=== PATIENT | female | born 1985 | race African-American/Black ===

== ENCOUNTER 2016-10-09 23:29 | Emergency (ER) | payer OTHER ==
[~2016-10-09] VITALS: Ht 162.6 cm; Wt 78.0 kg
[~2016-10-09 23:29] MED LIST: FERROUS SULFATE; PRENATAL VIT
[2016-10-10 00:52] VITALS: BP 132/81
[2016-10-10 01:51] LABS: *BARBITURATES SCREEN URINE NEGATIVE (NEGATIVE); *BENZODIAZEPINES SCREEN URINE NEGATIVE (NEGATIVE); ECSTASY MDMA SCREEN URINE NEGATIVE (NEGATIVE); METHADONE URINE SCREEN NEGATIVE (NEGATIVE); OPIATES URINE SCREEN NEGATIVE (NEGATIVE); PHENCYCLIDINE URINE SCREEN NEGATIVE (NEGATIVE)
[2016-10-10 01:54] LABS: BASOPHILS % 0.7 % (0.0-2.0); EOSINOPHILS % 0.7 % (0.0-5.0); HEMATOCRIT. 38.1 % (36.0-48.0); HEMOGLOBIN. 12.7 g/dL (12.0-16.0); MEAN CORPUSCULAR HEMOGLOBIN 30.9 pg (28.0-32.0); MEAN CORPUSCULAR HGB CONC 33.5 g/dL (31.0-37.0); MEAN CORPUSCULAR VOLUME 92.4 fL (81.0-99.0); MEAN PLATELET VOLUME 8.3 fl (7.4-10.4); MONOCYTES % 7.4 % (2.0-8.0); NEUTROPHILS % 58.2 % (40.0-76.0); PLATELET 271 x1000/uL (130-400); RED BLOOD CELL COUNT 4.12 mill/uL (4.2-5.4); RED CELL DISTRIBUTION WIDTH 13.5 % (11.6-14.6); WHITE BLOOD COUNT 6.7 x1000/uL (4.5-11.0)
[2016-10-10 02:04] LABS: *AMPHETAMINES SCREEN URINE NEGATIVE (NEGATIVE)
[2016-10-10 02:15] LABS: ANION GAP 12; CALCIUM 9.1 mg/dL (8.5-10.1); CARBON DIOXIDE 25 mEq/L (21-32); CHLORIDE 104 mEq/L (98-107); INDEX HEMOLYSI 1 (1-3); INDEX ICTERIC 1 (1-4); INDEX LIPEMIC 1 (1-3); UREA NITROGEN BLOOD 8 mg/dL (7-21); eGFR > 60 mL/min (>60)
[2016-10-10 02:16] LABS: *COCAINE SCREEN URINE PRESUMTIVE POSITIVE (NEGATIVE); CANNABINOID URINE SCREEN PRESUMTIVE POSITIVE (NEGATIVE)
[2016-10-10 02:27] LABS: B-HCG QUANTITATIVE 6024 mIU/mL (<3)
== END 2016-10-10 04:36 | disposition left against medical advice (07) ==
LOC: ER 23:30
DX: O03.9 Complete or unspecified spontaneous abortion without complication (principal); F14.129 Cocaine abuse with intoxication, unspecified; F12.929 Cannabis use, unspecified with intoxication, unspecified; Z3A.01 Less than 8 weeks gestation of pregnancy
CPT/HCPCS: 36415; 76830; 76856; 80048; 80305; 81025; 84702; 85025; 86850; 86900; 99285

== ENCOUNTER 2017-03-12 09:20 | Emergency (ER) | payer SELFPAY ==
[~2017-03-12] VITALS: Ht 162.6 cm; Wt 84.0 kg
[2017-03-12] MEDS ORDERED: SODIUM CHLORIDE 0.9% 1,000 ML IV ONE (10:59)
[2017-03-12 11:22] LABS: BASOPHILS % 0.6 % (0.0-2.0); EOSINOPHILS % 0.1 % (0.0-5.0); HEMATOCRIT. 38.2 % (36.0-48.0); LYMPHOCYTES % 22.9 % (20.0-50.0); MEAN CORPUSCULAR HEMOGLOBIN 31.2 pg (28.0-32.0); MEAN CORPUSCULAR VOLUME 91.4 fL (81.0-99.0); MEAN PLATELET VOLUME 8.6 fl (7.4-10.4); MONOCYTES % 6.7 % (2.0-8.0); NEUTROPHILS % 69.7 % (40.0-76.0); PLATELET 244 x1000/uL (130-400); RED BLOOD CELL COUNT 4.18 mill/uL (4.2-5.4); RED CELL DISTRIBUTION WIDTH 13.3 % (11.6-14.6)
[2017-03-12 11:30] LABS: CHLORIDE 101 mEq/L (98-107)
[2017-03-12 11:38] LABS: CARBON DIOXIDE 26 mEq/L (21-32)
[2017-03-12 11:44] LABS: HCG SCREEN POSITIVE
[2017-03-12] MEDS ORDERED: ONDANSETRON HCL 4MG/2ML VIAL IV ONE (11:45)
[2017-03-12 11:58] LABS: CLARITY URINE CLEAR (CLEAR); COLOR URINE DARK YELLOW (YELLOW); GLUCOSE URINE NEGATIVE (NEGATIVE); KETONES URINE 2+ (NEGATIVE); LEUKOCYTE ESTERASE URINE NEGATIVE (NEGATIVE); NITRITE URINE NEGATIVE (NEGATIVE); OCCULT BLOOD URINE NEGATIVE (NEGATIVE); PROTEIN URINE TRACE (NEGATIVE); SPECIFIC GRAVITY URINE 1.022 (1.005-1.030)
[2017-03-12 14:40] VITALS: BP 120/82
[2017-03-14 04:18] LABS: CHLAMYDIA TRACHOMATIS NAA Negative (Negative); NEISSERIA GONORRHOEAE NAA Negative (Negative)
== END 2017-03-12 14:53 | disposition home or self-care (01) ==
LOC: ER 09:35
DX: O26.891 Other specified pregnancy related conditions, first trimester (principal); R11.0 Nausea; Z3A.01 Less than 8 weeks gestation of pregnancy
CPT/HCPCS: 36415; 71010; 76801; 76817; 80053; 81001; 84702; 84703; 85025; 87491; 87591; 93005; 96361; 96374; 99285; J2405; J7030; Z7610

== ENCOUNTER 2017-10-25 00:30 | Observation (INO) | payer MEDICAID ==
[~2017-10-25] VITALS: Ht 162.6 cm; Wt 113.4 kg
== END 2017-10-25 02:00 | disposition home or self-care (01) ==
LOC: L&D 00:30
PROVIDERS: ADMIT Specialist; ATTEND Specialist
DX: O42.92 Full-term premature rupture of membranes, unspecified as to length of time between rupture and onset of labor (principal); Z3A.39 39 weeks gestation of pregnancy
CPT/HCPCS: 99281; G0378

== ENCOUNTER 2017-11-06 23:02 | Observation (INO) | payer MEDICAID ==
[~2017-11-06] VITALS: Ht 162.6 cm; Wt 113.4 kg
[~2017-11-06 23:02] MED LIST changes: -FERROUS SULFATE
== END 2017-11-07 00:35 | disposition home or self-care (01) ==
LOC: L&D 23:02
PROVIDERS: ADMIT Specialist; ATTEND Specialist
DX: O62.9 Abnormality of forces of labor, unspecified (principal); Z3A.40 40 weeks gestation of pregnancy; O48.1 Prolonged pregnancy
CPT/HCPCS: 99281; G0378

== ENCOUNTER 2018-04-23 11:22 | Emergency (ER) | payer MEDICAID ==
[~2018-04-23] VITALS: Ht 162.6 cm; Wt 111.0 kg
[2018-04-23 11:56] VITALS: BP 142/87
[2018-04-23] MEDS ORDERED: IBUPROFEN 800MG TABLET PO ONE (12:30)
== END 2018-04-23 12:34 | disposition home or self-care (01) ==
LOC: ER 11:30
DX: S13.4XXA Sprain of ligaments of cervical spine, initial encounter (principal); V89.2XXA Person injured in unspecified motor-vehicle accident, traffic, initial encounter; Y93.89 Activity, other specified; Y92.89 Other specified places as the place of occurrence of the external cause; Y99.8 Other external cause status
CPT/HCPCS: 99283

== ENCOUNTER 2019-01-30 00:11 | Observation (INO) | payer MEDICAID ==
[~2019-01-30] VITALS: Ht 162.6 cm; Wt 99.8 kg
[2019-01-30] MEDS ORDERED: prenatal vitamin (00:46)
[2019-01-30] MEDS ORDERED: LACTATED RINGERS 1,000 ML IV SCH (02:45)
== END 2019-01-30 04:30 | disposition home or self-care (01) ==
LOC: 8 EST LDRP 00:11
PROVIDERS: ADMIT Specialist; ATTEND Specialist
DX: O36.8130 Decreased fetal movements, third trimester, not applicable or unspecified (principal); O62.9 Abnormality of forces of labor, unspecified; O48.0 Post-term pregnancy; Z3A.42 42 weeks gestation of pregnancy
CPT/HCPCS: 76815; 76818; 99281; G0378; 96360; 96361

== ENCOUNTER 2019-02-01 04:17 | Observation (INO) | payer MEDICAID ==
[~2019-02-01] VITALS: Ht 162.6 cm; Wt 99.8 kg
[~2019-02-01 04:17] MED LIST changes: -PRENATAL VIT; +prenatal vitamin
== END 2019-02-01 10:00 | disposition home or self-care (01) ==
LOC: 8 EST LDRP 04:17
PROVIDERS: ADMIT Obstetrics & Gynecology; ATTEND Obstetrics & Gynecology
DX: O48.1 Prolonged pregnancy (principal); Z3A.42 42 weeks gestation of pregnancy
CPT/HCPCS: 76805; 76815; 76818; 99281; G0378

== ENCOUNTER 2019-02-02 00:12 | Inpatient (IN) | payer MEDICAID ==
[~2019-02-02] VITALS: Ht 162.6 cm; Wt 99.8 kg
[2019-02-02] MEDS ORDERED: DEXT 5%/LR + PITOCIN 20UNITS/L 1,000 ML IV SCH (01:39)
[2019-02-02] MEDS ORDERED: LIDOCAINE HCL 1% 20ML VIAL (Pyxis) INJ INFIL SCH (01:45)
[2019-02-02] MEDS ORDERED: METHYLERGONOVINE MALEATE 0.2 MG/ML IM PRN (01:45)
[2019-02-02] MEDS ORDERED: MISOPROSTOL 100MCG TABLET VG PRN (01:45)
[2019-02-02] MEDS ORDERED: NALOXONE HCL 0.4 MG/ML 1ML VIAL IM PRN (01:45)
[2019-02-02] MEDS ORDERED: BUTORPHANOL TARTRATE 2 MG/ML VIAL IV PRN (01:45)
[2019-02-02] MEDS ORDERED: AMPICILLIN 2,000 MG in SODIUM CHLORIDE 0.9% 100 ML IV SCH (02:00)
[2019-02-02] MEDS ORDERED: MISOPROSTOL 25 MCG TABLET VG PRN (02:30)
[2019-02-02] MEDS: LACTATED RINGERS 1,000 ML IV SCH ×5 (03:21→23:49)
[2019-02-02] MEDS: MISOPROSTOL 100MCG TABLET VG PRN ×2 (03:55→08:32)
[2019-02-02 04:54] LABS: BASOPHILS % 0.4 % (0.0-2.0); EOSINOPHILS % 0.3 % (0.0-5.0); HEMATOCRIT. 33.2 % (36.0-48.0); HEMOGLOBIN. 11.2 g/dL (12.0-16.0); MEAN CORPUSCULAR VOLUME 91.8 fL (81.0-99.0); MEAN PLATELET VOLUME 9.6 fl (7.4-10.4); MONOCYTES % 9.1 % (2.0-8.0); NEUTROPHILS % 69.2 % (40.0-76.0); PLATELET 236 x1000/uL (130-400); RED BLOOD CELL COUNT 3.61 mill/uL (4.2-5.4); RED CELL DISTRIBUTION WIDTH 13.9 % (11.6-14.6)
[2019-02-02 05:00] LABS: CLARITY URINE CLOUDY (CLEAR); COLOR URINE YELLOW (YELLOW); KETONES URINE NEGATIVE (NEGATIVE); LEUKOCYTE ESTERASE URINE NEGATIVE (NEGATIVE); NITRITE URINE NEGATIVE (NEGATIVE); OCCULT BLOOD URINE NEGATIVE (NEGATIVE); PH URINE 6.5 (4.5-8.0); PROTEIN URINE NEGATIVE (NEGATIVE); SPECIFIC GRAVITY URINE 1.013 (1.005-1.030)
[2019-02-02 05:02] LABS: INR 0.9; PROTHROMBIN TIME 9.6 sec (9.6-11.0)
[2019-02-02 05:19] LABS: *AMPHETAMINES SCREEN URINE NEGATIVE (NEGATIVE); *BARBITURATES SCREEN URINE NEGATIVE (NEGATIVE); *BENZODIAZEPINES SCREEN URINE NEGATIVE (NEGATIVE); *COCAINE SCREEN URINE NEGATIVE (NEGATIVE); METHADONE URINE SCREEN NEGATIVE (NEGATIVE)
[2019-02-02 05:20] LABS: CANNABINOID URINE SCREEN NEGATIVE (NEGATIVE); OPIATES URINE SCREEN NEGATIVE (NEGATIVE); PHENCYCLIDINE URINE SCREEN NEGATIVE (NEGATIVE)
[2019-02-02 05:33] LABS: HEPATITIS B SURFACE ANTIGEN NEGATIVE
[2019-02-02] MEDS ORDERED: ROPIVACAINE HCL/PF EPIDURAL 200 ML EP SCH (06:15)
[2019-02-02] MEDS ORDERED: CITRIC ACID/SODIUM CITRATE SOLN 30ML UDC PO NR (07:15)
[2019-02-02] MEDS: AMPICILLIN 1,000 MG in SODIUM CHLORIDE 0.9% 50 ML IV SCH ×3 (10:08→22:39)
[2019-02-03] MEDS: AMPICILLIN 1,000 MG in SODIUM CHLORIDE 0.9% 50 ML IV SCH (02:24)
[2019-02-03] MEDS ORDERED: DEXT 5%/LR + PITOCIN 20UNITS/L 1,000 ML IV SCH (04:07)
[2019-02-03] MEDS ORDERED: RHO(D) IMMUNE GLOBULIN 300 MCG/SYR IM PRN (04:15)
[2019-02-03] MEDS ORDERED: IBUPROFEN 400MG TABLET PO PRN (04:15)
[2019-02-03] MEDS ORDERED: BENZOCAINE/LANOLIN/ALOE VERA SPRAY TOP PRN (04:15)
[2019-02-03] MEDS: IBUPROFEN 800MG TABLET PO PRN ×3 (06:49→18:00)
[2019-02-03 07:45] VITALS: BP 138/81
[2019-02-03 15:58] VITALS: BP 120/71
[2019-02-03 19:30] VITALS: BP 124/80
[2019-02-04] MEDS: IBUPROFEN 800MG TABLET PO PRN ×2 (01:15→15:17)
[2019-02-04 04:00] VITALS: BP 128/84
[2019-02-04 07:57] LABS: BASOPHILS % 0.3 % (0.0-2.0); EOSINOPHILS % 1.3 % (0.0-5.0); HEMATOCRIT. 27.1 % (36.0-48.0); HEMOGLOBIN. 9.3 g/dL (12.0-16.0); LYMPHOCYTES % 29.2 % (20.0-50.0); MEAN CORPUSCULAR HEMOGLOBIN 31.6 pg (28.0-32.0); MEAN CORPUSCULAR VOLUME 92.4 fL (81.0-99.0); MEAN PLATELET VOLUME 8.8 fl (7.4-10.4); NEUTROPHILS % 60.2 % (40.0-76.0); PLATELET 175 x1000/uL (130-400); RED BLOOD CELL COUNT 2.93 mill/uL (4.2-5.4); RED CELL DISTRIBUTION WIDTH 14.1 % (11.6-14.6)
[2019-02-04 09:00] VITALS: BP 103/73
[2019-02-04] MEDS ORDERED: ACETAMINOPHEN WITH CODEINE 300/30MG TABLET PO PRN (12:45)
[2019-02-04] MEDS ORDERED: IBUPROFEN 400MG TABLET PO PRN (14:50)
[2019-02-04] MEDS ORDERED: RHO(D) IMMUNE GLOBULIN 300 MCG/SYR IM PRN (15:00)
[2019-02-04] MEDS ORDERED: BENZOCAINE/LANOLIN/ALOE VERA SPRAY TOP PRN (15:00)
[2019-02-04] MEDS ORDERED: LACTATED RINGERS 1,000 ML IV SCH (15:00)
[2019-02-04] MEDS: ACETAMINOPHEN WITH CODEINE 300/30MG TABLET PO PRN (15:18)
[2019-02-04 17:32] VITALS: BP 117/78
[2019-02-04 20:00] VITALS: BP 123/63
[2019-02-04 22:30] VITALS: BP 122/76
[2019-02-05] MEDS: ACETAMINOPHEN WITH CODEINE 300/30MG TABLET PO PRN (00:58)
[2019-02-05] MEDS: IBUPROFEN 800MG TABLET PO PRN ×2 (01:02→08:27)
[2019-02-05 04:30] VITALS: BP 124/74
[2019-02-05 08:20] VITALS: BP 131/76
[2019-02-05 08:27] VITALS: BP 124/74
== END 2019-02-05 11:50 | disposition home or self-care (01) | DRG 560 ==
LOC: 8 EST LDRP 00:12 → OBSVTOIN 00:12 → 8EST 02-03 05:47
PROVIDERS: ADMIT Obstetrics & Gynecology; ATTEND Obstetrics & Gynecology
PROC: 10E0XZZ Delivery of Products of Conception, External Approach (ICD-10-PCS; principal; 2019-02-03)
PROC: 0KQM0ZZ Repair Perineum Muscle, Open Approach (ICD-10-PCS; 2019-02-03)
PROC: 3E0R3BZ Introduction of Anesthetic Agent into Spinal Canal, Percutaneous Approach (ICD-10-PCS; 2019-02-03)
PROC: 00HU33Z Insertion of Infusion Device into Spinal Canal, Percutaneous Approach (ICD-10-PCS; 2019-02-03)
DX: O48.0 Post-term pregnancy (principal); O36.63X0 Maternal care for excessive fetal growth, third trimester, not applicable or unspecified; O70.1 Second degree perineal laceration during delivery; Z37.0 Single live birth; Z3A.42 42 weeks gestation of pregnancy
CPT/HCPCS: 36415; 80305; 81003; 86592; 86703; 86762; 86850; 86900; 87340; G0378; J0290; J2590; J2795; J7050; J7120

== ENCOUNTER 2022-01-23 03:56 | Emergency (ER) | payer MEDICAID ==
[~2022-01-23] VITALS: Ht 162.6 cm; Wt 118.0 kg
[2022-01-23 05:07] VITALS: BP 143/93
[2022-01-23 07:28] LABS: CHLORIDE 107 mEq/L (98-107)
[2022-01-23 07:45] LABS: BASOPHILS % 0.3 % (0.0-2.0); EOSINOPHILS % 0.7 % (0.0-5.0); HEMATOCRIT. 36.3 % (36.0-48.0); HEMOGLOBIN. 12.5 g/dL (12.0-16.0); LYMPHOCYTES % 22.1 % (20.0-50.0); MEAN CORPUSCULAR VOLUME 90.3 fL (81.0-99.0); MEAN PLATELET VOLUME 9.3 fl (7.4-10.4); MONOCYTES % 7.9 % (2.0-8.0); PLATELET 305 x1000/uL (130-400); RED BLOOD CELL COUNT 4.02 mill/uL (4.2-5.4); RED CELL DISTRIBUTION WIDTH 13.8 % (11.6-14.6)
[2022-01-23 07:46] LABS: HCG SCREEN POSITIVE
[2022-01-23 07:50] LABS: INR 0.9; PROTHROMBIN TIME 10.1 sec (9.6-11.0)
[2022-01-23 08:25] LABS: CLARITY URINE CLOUDY (CLEAR); COLOR URINE YELLOW (YELLOW); KETONES URINE TRACE (NEGATIVE); LEUKOCYTE ESTERASE URINE 1+ (NEGATIVE); NITRITE URINE NEGATIVE (NEGATIVE); OCCULT BLOOD URINE 3+ (NEGATIVE); PROTEIN URINE TRACE (NEGATIVE); SPECIFIC GRAVITY URINE 1.022 (1.005-1.030)
[2022-01-23] MEDS ORDERED: NITR100C PO (08:55)
[2022-01-23] MEDS ORDERED: TOPUD PO (08:55)
== END 2022-01-23 09:15 | disposition home or self-care (01) ==
LOC: ER 03:56
DX: O26.91 Pregnancy related conditions, unspecified, first trimester (principal); O23.42 Unspecified infection of urinary tract in pregnancy, second trimester; R10.9 Unspecified abdominal pain; Z3A.00 Weeks of gestation of pregnancy not specified
CPT/HCPCS: 36415; 80053; 81003; 84703; 85025; 99283